=== PATIENT | female | born 1935 | race Caucasian/White ===

== ENCOUNTER 2018-08-06 01:52 | Inpatient (IN) | payer MEDICARE ==
[2018-08-06] MEDS ORDERED: Ondansetron PF 4 MG/2 ML Vial IVP PRN (02:34)
[2018-08-06 02:43] LABS: Bilirubin Small (Negative); Blood, Urine Negative (Negative); Clarity CLOUDY (Clear); Glucose, Urine (Dipstick) Negative (Negative); Leukocyte Small (Negative); Nitrite Positive (Negative); Protein, Urine (Dipstick) 30 mg/dL (Neg-Trace); Specific Gravity, Urine 1.027 (1.002-1.036)
[2018-08-06 02:46] LABS: Bacteria/HPF None Seen HPF (None Seen); Pathc Cast-AUWi Flag 12.78 (0-2.49)
[2018-08-06 02:59] LABS: Hyaline Casts/LPF 0-3 HYALINE CAST LPF (0-3 Hyaline); RBC/HPF 0-3 HPF (0-3); Renal Epithelial None Seen HPF (0-3); Squamous Epithelial 0-3 HPF (0-3); Transitional Epithelial NONE SEEN HPF (0-3)
[2018-08-06 03:00] LABS: Other Casts/LPF None Seen LPF (0-3 Hyaline)
[2018-08-06 03:18] LABS: Hemoglobin 10.9 g/dL (12.0-16.0); Mean Corpuscular HGB CONC 32.1 g/dL (32.0-36.0); Mean Corpuscular Hemoglobin 28.9 pg (27.0-31.0); Mean Corpuscular Volume 90.1 fL (78.0-98.0); Mean Platelet Volume 6.7 fL (7.4-10.4); Platelet Count 498 thou/uL (130-400); RBC Distribution Width 12.5 % (11.5-14.5); Red Blood Cell (RBC) Count 3.78 mill/uL (4.20-5.40); White Blood Cell (WBC) Count 29.4 thou/uL (4.8-10.8)
[2018-08-06 03:40] LABS: Anion Gap 16 mmol/L (10-20); BUN (Urea Nitrogen) 12 mg/dL (9.8-20.1); Calc. Creatinine Clearance 0 mL/min (70-130); Carbon Dioxide 26 mmol/L (23-31); Chloride 91 mmol/L (98-107); Estimated GFR-MDRD Greater than 90; Glucose 145 mg/dL (83-110); Potassium 3.1 mmol/L (3.5-5.1); Sodium 130 mmol/L (136-145)
[2018-08-06 03:52] LABS: Band 6 % (5-11); Lymphocytes 9 % (21-51); MDiff Complete? YES; Monocytes 7 % (0-10); Neutrophil 78 % (42-75)
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
[2018-08-06] MEDS: cefTRIAXone\\ROCEPHIN 1 GM in Sodium Chloride 0.9% 100 ML IVPB SCH (05:17)
[2018-08-06] MEDS: Azithromycin 500 MG in Sodium Chloride 0.9% 250 ML 250 ML IVPB SCH (05:38)
[2018-08-06] MEDS ORDERED: D5 NS w/ 40 mEq KCl 1,000 ML IV SCH (07:45)
[2018-08-06 09:12] LABS: Magnesium 1.5 mg/dL (1.6-2.6); Phosphorus 2.5 mg/dL (2.3-4.7)
[2018-08-06] MEDS ORDERED: Magnesium 2 GM/50 ML 2 GM in Premix Bag 1 BAG IVPB SCH (11:15)
[2018-08-06] MEDS ORDERED: Vancomycin HCl 1 GM in Premix Bag 1 BAG IVPB SCH (12:15)
[2018-08-06] MEDS: Bisacodyl 5 MG TAB PO SCH ×2 (13:19→22:49)
[2018-08-06] MEDS: Heparin 5,000 UNITS/ML VIAL SC SCH ×2 (13:19→22:49)
[2018-08-06 13:44] VITALS: BMI 16.2
[2018-08-06] MEDS ORDERED: Sodium Chloride 0.9% 1,000 ML IV SCH (13:48)
[2018-08-06] MEDS: D5 NS w/ 40 mEq KCl 1,000 ML IV SCH ×2 (14:00→20:53)
[2018-08-06] MEDS: Vancomycin HCl 750 MG in Sodium Chloride 0.9% 250 ML 250 ML IVPB SCH (15:20)
[2018-08-06] MEDS ORDERED: Prevnar 13-Val Conj/PF 0.5 ML SYRINGE IM ONE (16:00)
[2018-08-06] MEDS: Senokot S 8.6-50 MG TAB PO SCH (22:48)
[2018-08-07] MEDS: D5 NS w/ 40 mEq KCl 1,000 ML IV SCH (01:25)
[2018-08-07] MEDS: cefTRIAXone\\ROCEPHIN 1 GM in Sodium Chloride 0.9% 100 ML IVPB SCH (03:07)
[2018-08-07] MEDS: Azithromycin 500 MG in Sodium Chloride 0.9% 250 ML 250 ML IVPB SCH (04:55)
[2018-08-07 05:36] LABS: Band 2 % (5-11); Hemoglobin 8.2 g/dL (12.0-16.0); Lymphocytes 2 % (21-51); MDiff Complete? YES; Mean Corpuscular Hemoglobin 29.3 pg (27.0-31.0); Mean Corpuscular Volume 91.5 fL (78.0-98.0); Mean Platelet Volume 6.8 fL (7.4-10.4); Monocytes 5 % (0-10); Neutrophil 91 % (42-75); Platelet Count 411 thou/uL (130-400); RBC Distribution Width 12.5 % (11.5-14.5); Red Blood Cell (RBC) Count 2.79 mill/uL (4.20-5.40); White Blood Cell (WBC) Count 20.2 thou/uL (4.8-10.8)
[2018-08-07 05:41] LABS: ALT (SGPT) 29 U/L (8-55); AST (SGOT) 37 U/L (5-34); Albumin 2.1 g/dL (3.4-4.8); Alkaline Phosphatase 215 U/L (40-150); Anion Gap 11 mmol/L (10-20); BUN (Urea Nitrogen) 8 mg/dL (9.8-20.1); Bilirubin, Total 0.5 mg/dL (0.2-1.2); Calc. Creatinine Clearance 56 mL/min (70-130); Calcium 7.1 mg/dL (7.8-10.44); Carbon Dioxide 24 mmol/L (23-31); Chloride 100 mmol/L (98-107); Estimated GFR-MDRD Greater than 90; Globulin 3.1 g/dL (2.4-3.5); Glucose 170 mg/dL (83-110); Magnesium 1.7 mg/dL (1.6-2.6); Phosphorus 1.8 mg/dL (2.3-4.7); Protein, Total 5.2 g/dL (6.0-8.3); Sodium 131 mmol/L (136-145)
[2018-08-07] MEDS ORDERED: Potassium Phosphate 15 MMOL in Sodium Chloride 0.9% 250 ML 250 ML IVPB SCH (07:30)
[2018-08-07] MEDS: Senokot S 8.6-50 MG TAB PO SCH ×2 (08:21→21:48)
[2018-08-07] MEDS: Saccharomyces boulardii 250 MG CAP PO SCH (08:21)
[2018-08-07] MEDS: Bisacodyl 5 MG TAB PO SCH ×2 (08:21→21:48)
[2018-08-07] MEDS: Dextrose 5 % And 0.9 % NaCl 1,000 ML IV SCH (08:22)
[2018-08-07] MEDS: Heparin 5,000 UNITS/ML VIAL SC SCH ×2 (08:22→21:48)
[2018-08-07] MEDS: Acetaminophen 325 MG TAB PO PRN (09:30)
--- NOTE | 2018-08-07 16:49 | HP ---
HISTORY OF PRESENT ILLNESS: Amalia Skelton is an 83-year-old female, lives at home with a caregiver. She has been admitted because of extensive decubitus. She is a DNR. Hospital personnel and nursing have not discovered [id number]. I have been asked to see her about extensive decubitus. She has a right leg deformity with flexion contracture of her right knee deformity from long-term non-ambulation with her knee flexed up into her hip and her ankle turned outward. She has decubitus over her ankle. She has a right ischial decubitus to the femur bone with involved bone irregular bone on palpation. She has a large sacral decubitus extending to the sacrum with irregular bone obviously both involving osteomyelitis. She has extensive necrosis of her tissues and large wounds with undermining. The patient continues to state no, no, no as I examined her. She is not competent for medical decisions. She does not know where she is. She does not know where she lives. Past history was obtained from the chart as the patient is not a reliable historian. White count is 20, hemoglobin is 8.2. Renal function is normal. Glucose 170 to 140. Current history and physical does not discern any past history. PAST SURGICAL HISTORY: Review of her past records from 2014 reveal past medical history of dementia. PAST SURGICAL HISTORY: Suggests a partial colectomy and ovarian cyst removal. Past admission, she was only on MiraLAX. SOCIAL HISTORY: In 2014, the patient had an [id number] stating that she was her power of security compliance specialist. Her name is Rajesh. No history of tobacco, drug use, or alcohol use. PHYSICAL EXAMINATION: VITAL SIGNS: Height 5 feet 3 inches, 91 pounds, 16 BMI, 110 heart rate, 20, 126/72. LUNGS: Clear to auscultation. CARDIAC: Regular rate and rhythm without murmur or gallop. ABDOMEN: Soft and nontender. MUSCULOSKELETAL: Right leg deformity as described. Decubitus over elbows, ankles, right ischium, and sacrum. The ischial sacral wounds are large with a large amount undermining and necrotic tissue. I exposed proximal femur and sacrum respectively with irregular bone palpated, consistent with osteomyelitis. EXTREMITIES: Deformity. LABORATORY DATA: Laboratories as noted. ASSESSMENT AND PLAN: Do not resuscitate, bedridden, and severe dementia. The patient has extensive decubitus. Surgical debridement would require going to the operating room and debridement of the underlying soft tissues, femur, and sacrum. She would require extensive soft tissue debridement. Currently, I think the patient should be on hospice care and the patient although confused, says no to all treatment. I would not recommend debridement and would recommend hospice care and palliative measures. At this point, I will see her as needed. Please call if necessary. Job ID: [id number]
[2018-08-07] MEDS: Vancomycin HCl 750 MG in Sodium Chloride 0.9% 250 ML 250 ML IVPB SCH (17:33)
--- NOTE | 2018-08-07 18:50 | PDOC.PN ---
- Subjective Encounter Start Date: 08/07/18 Encounter Start Time: 10:00 Patient seen and examined for Sepsis. No new complaints. No overnight events - Objective Resuscitation Status - Order Detail: 08/06/18 13:59 Resuscitation Status Routine Resuscitation Status: DNAR: NO Resuscitation Discussed with: Palliative care confirmed with family MAR Reviewed: Yes Vital Signs & Weight: Vital Signs (12 hours) Temp Pulse Resp BP Pulse Ox 08/07/18 16:00 98.2 F 104 H 22 H 122/67 98 08/07/18 14:56 97 20 97 08/07/18 12:00 99.1 F 109 H 22 H 103/49 L 98 08/07/18 10:21 110 H 20 99 08/07/18 07:01 87 16 97 Weight Weight 91 lb 12.8 oz Result Diagrams: 08/07/18 04:52 08/07/18 04:52 Radiology Reviewed by me: Yes (CXR - RML pneumonia) Phys Exam - Physical Examination Constitutional: NAD Neck: no JVD Respiratory: no wheezing Rt sided rhonchi/rales, No accessory muscle use Cardiovascular: RRR, no rub no heaves/pulsations Gastrointestinal: soft, non-tender, no distention, positive bowel sounds Musculoskeletal: no edema, pulses present Neurological: non-focal, normal sensation, moves all 4 limbs Psychiatric: normal affect, A&O x 3 Skin: no rash Deviation from normal: decub ulcer + Dx/Plan - Plan DVT proph w/heparin, DVT proph w/SCDs 1. Sepsis due to Pneumonia ? Aspiration/infected decub ulcers 2. Stage 3 left great toe ulcer, Left ischial unstageable (present on admission ) 3. Electrolyte abnormality (Hypokalemia/Hypomagnesemia/Hypophosphatemia) 4. Severe Protein Calorie malnutrition 5. HTN 6. Advanced Dementia 7. Swallow dysfunction PLAN: Cont Vancomycin/Ceftriaxone Monitor Vancomycin level AM labs Replace electrolytes SNF Eval Cont wound care Review of Systems - Review of Systems Other: Cannot obtain due to current mentation. - Medications/Allergies Allergies/Adverse Reactions: Allergies Allergy/AdvReac Type Severity Reaction Status Date / Time No Known Drug Allergies Allergy Verified 06/01/14 22:47 Medications: Current Medications Acetaminophen (Tylenol) 650 mg PO Q4H PRN PRN Reason: Headache/Fever/Mild Pain (1-3) Last Admin: 08/07/18 09:30 Dose: 650 mg Albuterol/Ipratropium (Duoneb) 3 ml NEB [id number] [facility] Last Admin: 08/07/18 14:56 Dose: 3 ml Bisacodyl (Dulcolax) 5 mg PO BID [facility] Last Admin: 08/07/18 08:21 Dose: 5 mg Heparin Sodium (Porcine) (Heparin) 5,000 units SC BID [facility] Last Admin: 08/07/18 08:22 Dose: 5,000 units Azithromycin 500 mg/ Sodium (Chloride) 250 mls @ 250 mls/hr IVPB Q24HR [facility] Last Admin: 08/07/18 04:55 Dose: 250 mls Ceftriaxone Sodium 1 gm/ (Sodium Chloride) 100 mls @ 200 mls/hr IVPB Q24HR [facility] Last Admin: 08/07/18 03:07 Dose: 100 mls Vancomycin HCl 750 mg/ Sodium (Chloride) 250 mls @ 250 mls/hr IVPB 1400 [facility] Last Admin: 08/07/18 17:33 Dose: 250 mls Dextrose/Sodium Chloride (D5 0.9% Ns) 1,000 mls @ 50 mls/hr IV .Q20H [facility] Last Admin: 08/07/18 08:22 Dose: 1,000 mls Miscellaneous Medication (Pharmacy To Dose) 0 each IVPB PRN PRN PRN Reason: Pharmacy to Dose Ondansetron HCl (Zofran) 4 mg IVP Q6H PRN PRN Reason: Nausea/Vomiting Saccharomyces Boulardii (Florastor) 250 mg PO DAILY [facility] Last Admin: 08/07/18 08:21 Dose: 250 mg Senna/Docusate Sodium (Senokot S) 2 tab PO BID [facility] Last Admin: 08/07/18 08:21 Dose: 2 tab Sodium Chloride (Flush - Normal Saline) 10 ml IVF Q12HR [facility] Last Admin: 08/07/18 08:22 Dose: 10 ml Sodium Chloride (Flush - Normal Saline) 10 ml IVF PRN PRN PRN Reason: Saline Flush
[2018-08-08] MEDS: cefTRIAXone\\ROCEPHIN 1 GM in Sodium Chloride 0.9% 100 ML IVPB SCH (03:07)
[2018-08-08] MEDS: Dextrose 5 % And 0.9 % NaCl 1,000 ML IV SCH (03:09)
[2018-08-08] MEDS: Senokot S 8.6-50 MG TAB PO SCH ×2 (09:59→22:23)
[2018-08-08] MEDS: Saccharomyces boulardii 250 MG CAP PO SCH (09:59)
[2018-08-08] MEDS: Heparin 5,000 UNITS/ML VIAL SC SCH ×2 (09:59→22:24)
[2018-08-08] MEDS: Bisacodyl 5 MG TAB PO SCH ×2 (09:59→22:23)
[2018-08-08 13:46] LABS: Hemoglobin 8.9 g/dL (12.0-16.0); Mean Corpuscular Hemoglobin 29.2 pg (27.0-31.0); Mean Corpuscular Volume 91.5 fL (78.0-98.0); Mean Platelet Volume 6.7 fL (7.4-10.4); Platelet Count 490 thou/uL (130-400); RBC Distribution Width 12.9 % (11.5-14.5); Red Blood Cell (RBC) Count 3.02 mill/uL (4.20-5.40); White Blood Cell (WBC) Count 19.4 thou/uL (4.8-10.8)
[2018-08-08 13:53] LABS: Vancomycin, Trough 4.9 ug/mL
[2018-08-08 14:09] LABS: Band 2 % (5-11); Eosinophils 2 % (0-10); Lymphocytes 14 % (21-51); MDiff Complete? YES; Monocytes 2 % (0-10); Neutrophil 80 % (42-75); Platelet Morphology Comment Appears Increased
[2018-08-08 14:12] LABS: ALT (SGPT) 37 U/L (8-55); AST (SGOT) 40 U/L (5-34); Albumin 2.2 g/dL (3.4-4.8); Alkaline Phosphatase 256 U/L (40-150); Anion Gap 12 mmol/L (10-20); BUN (Urea Nitrogen) 5 mg/dL (9.8-20.1); Bilirubin, Total 0.8 mg/dL (0.2-1.2); Calc. Creatinine Clearance 56 mL/min (70-130); Calcium 7.5 mg/dL (7.8-10.44); Carbon Dioxide 23 mmol/L (23-31); Chloride 101 mmol/L (98-107); Estimated GFR-MDRD Greater than 90; Globulin 3.5 g/dL (2.4-3.5); Glucose 127 mg/dL (83-110); Magnesium 1.4 mg/dL (1.6-2.6); Phosphorus 2.5 mg/dL (2.3-4.7); Potassium 3.8 mmol/L (3.5-5.1); Protein, Total 5.7 g/dL (6.0-8.3); Sodium 132 mmol/L (136-145)
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
[2018-08-08] MEDS: Vancomycin HCl 750 MG in Sodium Chloride 0.9% 250 ML 250 ML IVPB SCH (14:44)
[2018-08-08] MEDS ORDERED: Magnesium 2 GM/50 ML 2 GM in Premix Bag 1 BAG IVPB SCH (14:45)
--- NOTE | 2018-08-08 22:38 | PDOC.PN ---
- Subjective Encounter Start Date: 08/08/18 Encounter Start Time: 14:00 Patient seen and examined for Sepsis. No new complaints. No overnight events - Objective Resuscitation Status - Order Detail: 08/06/18 13:59 Resuscitation Status Routine Resuscitation Status: DNAR: NO Resuscitation Discussed with: Palliative care confirmed with family MAR Reviewed: Yes Vital Signs & Weight: Vital Signs (12 hours) Temp Pulse Resp BP Pulse Ox 08/08/18 22:28 108 H 16 98 08/08/18 20:50 98.9 F 101 H 16 107/65 97 08/08/18 18:33 98 18 98 08/08/18 14:51 86 16 100 08/08/18 11:00 93 16 99 Weight Weight 91 lb 12.8 oz I&O: 08/07/18 08/08/18 08/09/18 06:59 06:59 06:59 Intake Total 692 Balance 692 Result Diagrams: 08/08/18 13:27 08/08/18 13:27 Phys Exam - Physical Examination Constitutional: NAD Respiratory: no wheezing, no rhonchi Cardiovascular: RRR, no rub Gastrointestinal: soft, positive bowel sounds Dx/Plan - Plan DVT proph w/heparin, DVT proph w/SCDs 1. Sepsis due to Pneumonia ? Aspiration/infected decub ulcers 2. Stage 3 left great toe ulcer, Left ischial unstageable (present on admission ) 3. Electrolyte abnormality (Hypokalemia/Hypomagnesemia/Hypophosphatemia) 4. Severe Protein Calorie malnutrition 5. HTN 6. Advanced Dementia 7. Swallow dysfunction 8. 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) PLAN: Replace Magnessium Cont IV Vancomycin/Ceftriaxone Monitor Vancomycin level AM labs Cont wound care SNF Eval pending Laboratory Tests 08/06/18 08/06/18 08/07/18 03:04 03:04 04:52 Potassium 3.1 L Phosphorus 2.5 1.8 L Magnesium 1.5 L 08/08/18 13:27 Potassium Phosphorus Magnesium 1.4 L Review of Systems - Review of Systems Respiratory: negative: Cough, Dry, Shortness of Breath, Hemoptysis, SOB with Excertion, Pleuritic Pain, Sputum, Wheezing Cardiovascular: negative: chest pain, palpitations, orthopnea, paroxysmal nocturnal dyspnea, edema, light headedness, other - Medications/Allergies Allergies/Adverse Reactions: Allergies Allergy/AdvReac Type Severity Reaction Status Date / Time No Known Drug Allergies Allergy Verified 06/01/14 22:47 Medications: Current Medications Acetaminophen (Tylenol) 650 mg PO Q4H PRN PRN Reason: Headache/Fever/Mild Pain (1-3) Last Admin: 08/07/18 09:30 Dose: 650 mg Albuterol/Ipratropium (Duoneb) 3 ml NEB [id number] [facility] Last Admin: 08/08/18 22:28 Dose: 3 ml Heparin Sodium (Porcine) (Heparin) 5,000 units SC BID [facility] Last Admin: 08/08/18 22:24 Dose: 5,000 units Ceftriaxone Sodium 1 gm/ (Sodium Chloride) 100 mls @ 200 mls/hr IVPB Q24HR [facility] Last Admin: 08/08/18 03:07 Dose: 100 mls Vancomycin HCl 750 mg/ Sodium (Chloride) 250 mls @ 250 mls/hr IVPB 0200,1400 [facility] Miscellaneous Medication (Pharmacy To Dose) 0 each IVPB PRN PRN PRN Reason: Pharmacy to Dose Ondansetron HCl (Zofran) 4 mg IVP Q6H PRN PRN Reason: Nausea/Vomiting Saccharomyces Boulardii (Florastor) 250 mg PO DAILY [facility] Last Admin: 08/08/18 09:59 Dose: 250 mg Senna/Docusate Sodium (Senokot S) 2 tab PO BID [facility] Last Admin: 08/08/18 22:23 Dose: 2 tab Sodium Chloride (Flush - Normal Saline) 10 ml IVF Q12HR [facility] Last Admin: 08/08/18 22:23 Dose: 10 ml Sodium Chloride (Flush - Normal Saline) 10 ml IVF PRN PRN PRN Reason: Saline Flush
[2018-08-09] MEDS: Vancomycin HCl 750 MG in Sodium Chloride 0.9% 250 ML 250 ML IVPB SCH ×2 (02:28→15:38)
[2018-08-09] MEDS: cefTRIAXone\\ROCEPHIN 1 GM in Sodium Chloride 0.9% 100 ML IVPB SCH (04:02)
[2018-08-09 06:21] LABS: #Eosinphils 0.2 thou/uL (0.0-0.7); #Lymphocytes 1.4 thou/uL (1.20-3.40); #Monocytes 1.4 thou/uL (0.11-0.59); #Neutrophils 13.6 thou/uL (1.40-6.50); %Basophils 0.2 % (0.0-1.0); %Eosinophils 0.9 % (0.0-10.0); %Lymphocytes 8.6 % (21.0-51.0); %Monocytes 8.2 % (0.0-10.0); %Neutrophils 82.1 % (42.0-75.0); Hemoglobin 8.4 g/dL (12.0-16.0); Mean Corpuscular HGB CONC 31.8 g/dL (32.0-36.0); Mean Corpuscular Volume 91.1 fL (78.0-98.0); Mean Platelet Volume 6.5 fL (7.4-10.4); Platelet Count 502 thou/uL (130-400); RBC Distribution Width 12.7 % (11.5-14.5); Red Blood Cell (RBC) Count 2.91 mill/uL (4.20-5.40); White Blood Cell (WBC) Count 16.6 thou/uL (4.8-10.8)
[2018-08-09 06:42] LABS: Albumin 2.1 g/dL (3.4-4.8); Anion Gap 12 mmol/L (10-20); BUN (Urea Nitrogen) 5 mg/dL (9.8-20.1); BUN/Creatinine Ratio 11.36; Calc. Creatinine Clearance 61 mL/min (70-130); Calcium 7.2 mg/dL (7.8-10.44); Carbon Dioxide 22 mmol/L (23-31); Chloride 100 mmol/L (98-107); Estimated GFR-MDRD Greater than 90; Glucose 100 mg/dL (83-110); Magnesium 1.8 mg/dL (1.6-2.6); Phosphorus 2.7 mg/dL (2.3-4.7); Potassium 3.8 mmol/L (3.5-5.1); Sodium 130 mmol/L (136-145)
[2018-08-09] MEDS: Heparin 5,000 UNITS/ML VIAL SC SCH ×2 (10:16→21:30)
[2018-08-09] MEDS: Saccharomyces boulardii 250 MG CAP PO SCH (10:16)
[2018-08-09] MEDS: Senokot S 8.6-50 MG TAB PO SCH ×2 (10:20→21:30)
--- NOTE | 2018-08-09 16:36 | EKG ---
Test Reason : Blood Pressure : / mmHG Vent. Rate : 097 BPM Atrial Rate : 097 BPM P-R Int : 134 ms QRS Dur : 070 ms QT Int : 370 ms P-R-T Axes : 069 -07 016 degrees QTc Int : 469 ms Sinus rhythm with marked sinus arrhythmia Cannot rule out Inferior infarct , age undetermined Abnormal ECG When compared with ECG of 03-DEC-2014 17:07, No significant change was found Confirmed by DR. Sharonda WILCOX ([id number]) on 08/09/2018 4:36:06 PM Referred By: KAREN Confirmed By:DR. Sharonda WILCOX
[2018-08-09] MEDS: Acetaminophen 325 MG TAB PO PRN (21:30)
--- NOTE | 2018-08-09 23:13 | PDOC.PN ---
- Subjective Encounter Start Date: 08/09/18 Encounter Start Time: 11:30 Patient seen and examined for Sepsis. No new complaints. No overnight events - Objective Resuscitation Status - Order Detail: 08/06/18 13:59 Resuscitation Status Routine Resuscitation Status: DNAR: NO Resuscitation Discussed with: Palliative care confirmed with family MAR Reviewed: Yes Vital Signs & Weight: Vital Signs (12 hours) Temp Pulse Resp BP Pulse Ox 08/09/18 20:14 98.7 F 111 H 16 127/85 96 08/09/18 19:06 93 20 94 L 08/09/18 14:36 100 16 95 Weight Weight 91 lb 12.8 oz I&O: 08/08/18 08/09/18 08/10/18 06:59 06:59 06:59 Intake Total 692 150 Balance 692 150 Result Diagrams: 08/09/18 05:46 08/09/18 05:46 Phys Exam - Physical Examination Constitutional: NAD Respiratory: no wheezing, no rhonchi Cardiovascular: RRR, no rub Gastrointestinal: soft, non-tender, positive bowel sounds Musculoskeletal: no edema Dx/Plan - Plan DVT proph w/heparin, DVT proph w/SCDs 1. Sepsis due to Pneumonia ? Aspiration/infected decub ulcers 2. Stage 3 left great toe ulcer, Left ischial unstageable (present on admission ) 3. Electrolyte abnormality (Hypokalemia/Hypomagnesemia/Hypophosphatemia) 4. Severe Protein Calorie malnutrition 5. HTN 6. Advanced Dementia 7. 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 Swallow dysfunction PLAN: Replace Magnessium Cont IV Vancomycin/Ceftriaxone Monitor Vancomycin level AM labs Cont wound care SNF Eval Review of Systems - Review of Systems Respiratory: negative: Cough, Dry, Shortness of Breath, Hemoptysis, SOB with Excertion, Pleuritic Pain, Sputum, Wheezing Cardiovascular: negative: chest pain, palpitations, orthopnea, paroxysmal nocturnal dyspnea, edema, light headedness, other - Medications/Allergies Allergies/Adverse Reactions: Allergies Allergy/AdvReac Type Severity Reaction Status Date / Time No Known Drug Allergies Allergy Verified 06/01/14 22:47 Medications: Current Medications Acetaminophen (Tylenol) 650 mg PO Q4H PRN PRN Reason: Headache/Fever/Mild Pain (1-3) Last Admin: 08/09/18 21:30 Dose: 650 mg Albuterol/Ipratropium (Duoneb) 3 ml NEB [id number] [facility] Last Admin: 08/09/18 22:43 Dose: Not Given Heparin Sodium (Porcine) (Heparin) 5,000 units SC BID [facility] Last Admin: 08/09/18 21:30 Dose: 5,000 units Ceftriaxone Sodium 1 gm/ (Sodium Chloride) 100 mls @ 200 mls/hr IVPB Q24HR [facility] Last Admin: 08/09/18 04:02 Dose: 100 mls Vancomycin HCl 750 mg/ Sodium (Chloride) 250 mls @ 250 mls/hr IVPB 0200,1400 [facility] Last Admin: 08/09/18 15:38 Dose: 250 mls Miscellaneous Medication (Pharmacy To Dose) 0 each IVPB PRN PRN PRN Reason: Pharmacy to Dose Ondansetron HCl (Zofran) 4 mg IVP Q6H PRN PRN Reason: Nausea/Vomiting Saccharomyces Boulardii (Florastor) 250 mg PO DAILY [facility] Last Admin: 08/09/18 10:16 Dose: 250 mg Senna/Docusate Sodium (Senokot S) 2 tab PO BID [facility] Last Admin: 08/09/18 21:30 Dose: 2 tab Sodium Chloride (Flush - Normal Saline) 10 ml IVF Q12HR [facility] Last Admin: 08/09/18 21:30 Dose: Not Given Sodium Chloride (Flush - Normal Saline) 10 ml IVF PRN PRN PRN Reason: Saline Flush Last Admin: 08/09/18 02:34 Dose: 10 ml
[2018-08-10 01:16] LABS: Vancomycin, Trough 16.7 ug/mL
[2018-08-10] MEDS: Vancomycin HCl 750 MG in Sodium Chloride 0.9% 250 ML 250 ML IVPB SCH ×2 (02:06→13:08)
[2018-08-10] MEDS: cefTRIAXone\\ROCEPHIN 1 GM in Sodium Chloride 0.9% 100 ML IVPB SCH (03:49)
[2018-08-10] MEDS: Senokot S 8.6-50 MG TAB PO SCH ×2 (08:13→20:39)
[2018-08-10] MEDS: Heparin 5,000 UNITS/ML VIAL SC SCH ×2 (08:13→20:39)
[2018-08-10] MEDS: Saccharomyces boulardii 250 MG CAP PO SCH (08:13)
[2018-08-10 12:16] LABS: #Eosinphils 0.1 thou/uL (0.0-0.7); #Lymphocytes 1.2 thou/uL (1.20-3.40); #Neutrophils 11.7 thou/uL (1.40-6.50); %Basophils 0.2 % (0.0-1.0); %Eosinophils 0.5 % (0.0-10.0); %Lymphocytes 8.3 % (21.0-51.0); %Monocytes 7.3 % (0.0-10.0); %Neutrophils 83.8 % (42.0-75.0); Hemoglobin 8.9 g/dL (12.0-16.0); Mean Corpuscular HGB CONC 32.5 g/dL (32.0-36.0); Mean Corpuscular Hemoglobin 29.5 pg (27.0-31.0); Mean Corpuscular Volume 90.8 fL (78.0-98.0); Mean Platelet Volume 6.1 fL (7.4-10.4); Platelet Count 572 thou/uL (130-400); Red Blood Cell (RBC) Count 3.03 mill/uL (4.20-5.40)
[2018-08-10 12:29] LABS: Albumin 2.2 g/dL (3.4-4.8); Anion Gap 12 mmol/L (10-20); BUN (Urea Nitrogen) 7 mg/dL (9.8-20.1); BUN/Creatinine Ratio 15.91; Calc. Creatinine Clearance 61 mL/min (70-130); Calcium 7.4 mg/dL (7.8-10.44); Carbon Dioxide 21 mmol/L (23-31); Chloride 104 mmol/L (98-107); Estimated GFR-MDRD Greater than 90; Glucose 97 mg/dL (83-110); Magnesium 1.6 mg/dL (1.6-2.6); Phosphorus 2.7 mg/dL (2.3-4.7); Potassium 3.6 mmol/L (3.5-5.1); Sodium 133 mmol/L (136-145)
[2018-08-10] MEDS: Acetaminophen 325 MG TAB PO PRN ×2 (13:54→20:39)
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
--- NOTE | 2018-08-10 20:38 | PDOC.PN ---
- Subjective Encounter Start Date: 08/10/18 Encounter Start Time: 12:00 Patient seen and examined for Sepsis. Feeling better. No new complaints. No overnight events - Objective Resuscitation Status - Order Detail: 08/06/18 13:59 Resuscitation Status Routine Resuscitation Status: DNAR: NO Resuscitation Discussed with: Palliative care confirmed with family MAR Reviewed: Yes Vital Signs & Weight: Vital Signs (12 hours) Temp Pulse Resp BP Pulse Ox 08/10/18 20:27 98.4 F 89 16 162/89 H 100 08/10/18 18:53 88 16 97 08/10/18 11:53 89 16 100 Weight Weight 91 lb 12.8 oz I&O: 08/09/18 08/10/18 08/11/18 06:59 06:59 06:59 Intake Total 150 521 510 Balance 150 521 510 Result Diagrams: 08/10/18 12:08 08/10/18 12:08 Phys Exam - Physical Examination Constitutional: NAD Respiratory: no wheezing, no rhonchi Cardiovascular: RRR, no rub Gastrointestinal: soft, non-tender, positive bowel sounds Musculoskeletal: no edema Dx/Plan - Plan DVT proph w/SCDs 1. Sepsis due to Pneumonia ? Aspiration/infected decub ulcers 2. Stage 3 left great toe ulcer, Left ischial unstageable (present on admission ) 3. Electrolyte abnormality (Hypokalemia/Hypomagnesemia/Hypophosphatemia) 4. Severe Protein Calorie malnutrition 5. HTN 6. Advanced Dementia 7. 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 Swallow dysfunction PLAN: Cont IV Vancomycin/Ceftriaxone Cont wound care SNF Eval pending Await family input on plan of care Review of Systems - Review of Systems Respiratory: negative: Cough, Dry, Shortness of Breath, Hemoptysis, SOB with Excertion, Pleuritic Pain, Sputum, Wheezing Cardiovascular: negative: chest pain, palpitations, orthopnea, paroxysmal nocturnal dyspnea, edema, light headedness, other - Medications/Allergies Allergies/Adverse Reactions: Allergies Allergy/AdvReac Type Severity Reaction Status Date / Time No Known Drug Allergies Allergy Verified 06/01/14 22:47 Medications: Current Medications Acetaminophen (Tylenol) 650 mg PO Q4H PRN PRN Reason: Headache/Fever/Mild Pain (1-3) Last Admin: 08/10/18 13:54 Dose: 650 mg Albuterol/Ipratropium (Duoneb) 3 ml NEB [id number] [facility] Last Admin: 08/10/18 18:53 Dose: 3 ml Heparin Sodium (Porcine) (Heparin) 5,000 units SC BID [facility] Last Admin: 08/10/18 08:13 Dose: 5,000 units Ceftriaxone Sodium 1 gm/ (Sodium Chloride) 100 mls @ 200 mls/hr IVPB Q24HR [facility] Last Admin: 08/10/18 03:49 Dose: 100 mls Vancomycin HCl 750 mg/ Sodium (Chloride) 250 mls @ 250 mls/hr IVPB 0200,1400 [facility] Last Admin: 08/10/18 13:08 Dose: 250 mls Miscellaneous Medication (Pharmacy To Dose) 0 each IVPB PRN PRN PRN Reason: Pharmacy to Dose Ondansetron HCl (Zofran) 4 mg IVP Q6H PRN PRN Reason: Nausea/Vomiting Saccharomyces Boulardii (Florastor) 250 mg PO DAILY [facility] Last Admin: 08/10/18 08:13 Dose: 250 mg Senna/Docusate Sodium (Senokot S) 2 tab PO BID [facility] Last Admin: 08/10/18 08:13 Dose: 2 tab Sodium Chloride (Flush - Normal Saline) 10 ml IVF Q12HR [facility] Last Admin: 08/10/18 08:13 Dose: 10 ml Sodium Chloride (Flush - Normal Saline) 10 ml IVF PRN PRN PRN Reason: Saline Flush Last Admin: 08/09/18 02:34 Dose: 10 ml
[2018-08-11] MEDS: Vancomycin HCl 750 MG in Sodium Chloride 0.9% 250 ML 250 ML IVPB SCH ×2 (01:11→14:04)
[2018-08-11] MEDS: cefTRIAXone\\ROCEPHIN 1 GM in Sodium Chloride 0.9% 100 ML IVPB SCH (03:15)
[2018-08-11] MEDS: Heparin 5,000 UNITS/ML VIAL SC SCH ×2 (07:54→21:09)
[2018-08-11] MEDS: Senokot S 8.6-50 MG TAB PO SCH ×2 (07:54→21:09)
[2018-08-11] MEDS: Saccharomyces boulardii 250 MG CAP PO SCH (07:54)
--- NOTE | 2018-08-11 22:30 | PDOC.PN ---
- Subjective Encounter Start Date: 08/11/18 Encounter Start Time: 10:30 Patient seen and examined for Sepsis/decub ulcer. No new complaints. No overnight events - Objective Resuscitation Status - Order Detail: 08/06/18 13:59 Resuscitation Status Routine Resuscitation Status: DNAR: NO Resuscitation Discussed with: Palliative care confirmed with family MAR Reviewed: Yes Vital Signs & Weight: Vital Signs (12 hours) Temp Pulse Resp Pulse Ox 08/11/18 20:00 98.6 F 102 H 20 99 08/11/18 18:37 94 18 99 08/11/18 15:57 92 16 96 Weight Weight 91 lb 12.8 oz I&O: 08/10/18 08/11/18 08/12/18 06:59 06:59 06:59 Intake Total 521 1138 491 Balance 521 1138 491 Result Diagrams: 08/10/18 12:08 08/10/18 12:08 Phys Exam - Physical Examination Constitutional: NAD Respiratory: no wheezing, no rhonchi Cardiovascular: RRR, no rub Gastrointestinal: soft, non-tender, positive bowel sounds Musculoskeletal: no edema Neurological: moves all 4 limbs Dx/Plan - Plan DVT proph w/SCDs 1. Sepsis due to Pneumonia ? Aspiration/infected decub ulcers- on IV Vancomycin/ Ceftriaxone 2. Stage 3 left great toe ulcer, Left ischial unstageable (present on admission ) 3. Electrolyte abnormality (Hypokalemia/Hypomagnesemia/Hypophosphatemia) 4. Severe Protein calorie malnutrition 5. HTN 6. Advanced Dementia 7. 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 Swallow dysfunction PLAN: Cont ATbx Cont wound care Change Atbx to PO at dc SNF Eval pending Review of Systems - Review of Systems Respiratory: negative: Cough, Dry, Shortness of Breath, Hemoptysis, SOB with Excertion, Pleuritic Pain, Sputum, Wheezing Cardiovascular: negative: chest pain, palpitations, orthopnea, paroxysmal nocturnal dyspnea, edema, light headedness, other - Medications/Allergies Allergies/Adverse Reactions: Allergies Allergy/AdvReac Type Severity Reaction Status Date / Time No Known Drug Allergies Allergy Verified 06/01/14 22:47 Medications: Current Medications Acetaminophen (Tylenol) 650 mg PO Q4H PRN PRN Reason: Headache/Fever/Mild Pain (1-3) Last Admin: 08/10/18 20:39 Dose: 650 mg Albuterol/Ipratropium (Duoneb) 3 ml NEB [id number] [facility] Last Admin: 08/11/18 18:37 Dose: 3 ml Heparin Sodium (Porcine) (Heparin) 5,000 units SC BID [facility] Last Admin: 08/11/18 21:09 Dose: 5,000 units Ceftriaxone Sodium 1 gm/ (Sodium Chloride) 100 mls @ 200 mls/hr IVPB Q24HR [facility] Last Admin: 08/11/18 03:15 Dose: 100 mls Vancomycin HCl 750 mg/ Sodium (Chloride) 250 mls @ 250 mls/hr IVPB 0200,1400 [facility] Last Admin: 08/11/18 14:04 Dose: 250 mls Miscellaneous Medication (Pharmacy To Dose) 0 each IVPB PRN PRN PRN Reason: Pharmacy to Dose Ondansetron HCl (Zofran) 4 mg IVP Q6H PRN PRN Reason: Nausea/Vomiting Saccharomyces Boulardii (Florastor) 250 mg PO DAILY [facility] Last Admin: 08/11/18 07:54 Dose: 250 mg Senna/Docusate Sodium (Senokot S) 2 tab PO BID [facility] Last Admin: 08/11/18 21:09 Dose: 2 tab Sodium Chloride (Flush - Normal Saline) 10 ml IVF Q12HR [facility] Last Admin: 08/11/18 21:10 Dose: 10 ml Sodium Chloride (Flush - Normal Saline) 10 ml IVF PRN PRN PRN Reason: Saline Flush Last Admin: 08/09/18 02:34 Dose: 10 ml
[2018-08-12] MEDS: Vancomycin HCl 750 MG in Sodium Chloride 0.9% 250 ML 250 ML IVPB SCH ×2 (03:00→13:12)
[2018-08-12] MEDS: cefTRIAXone\\ROCEPHIN 1 GM in Sodium Chloride 0.9% 100 ML IVPB SCH (04:30)
[2018-08-12] MEDS: Senokot S 8.6-50 MG TAB PO SCH (08:09)
[2018-08-12] MEDS: Saccharomyces boulardii 250 MG CAP PO SCH (08:09)
[2018-08-12] MEDS: Heparin 5,000 UNITS/ML VIAL SC SCH (08:09)
[2018-08-12 16:39] VITALS: BP 119/69; TEMP 98.2
--- NOTE | 2018-08-12 19:03 | DIS ---
DATE OF ADMISSION: 08/06/2018 DATE OF DISCHARGE: 08/12/2018 DISCHARGE DISPOSITION: To [facility]. CODE STATUS: Do not resuscitate. The patient was seen and examined on the day of discharge. Denies any new complaints. INPATIENT CONSULTANTS: 1. Infectious Disease, Dr. Stovall. 2. General Surgery, Dr. Wiley. DISCHARGE MEDICATIONS: Flagyl 500 mg three times daily for 4 weeks, Augmentin 400 mg b.i.d. for 4 weeks, Tylenol as needed, Florastor 250 mg daily, Senokot-S one tablet b.i.d. BRIEF HOSPITAL COURSE: The patient is an 83-year-old female with dementia, presented to the emergency room on 05 August 2018 with multiple decubitus ulcer. The patient currently is followed by DrBelinda . She also has multiple contractures. Please refer to the history and physical for further details. The patient was admitted to the hospital with a diagnosis of sepsis secondary to infected decubitus ulcer along with aspiration. She was placed on IV vancomycin and ceftriaxone. She received wound care almost on a daily basis. She also had several electrolyte abnormalities, which were replaced. Blood cultures remained negative. The patient was seen by General Surgery, Dr. Wiley. Dr. Wiley did not recommend debridement due to multiple comorbidities. He recommended hospice care and palliative measures. The patient was also seen by Infectious Disease, Dr. Stovall. Per family's request, the patient will be [facility]. They declined hospice at this time. Total time coordinating the discharge of this patient was 35 minutes. SIGNIFICANT LABORATORY DATA: WBC on admission 29.3 and at discharge 14. Hemoglobin 8.9. Sodium 130. Magnesium 1.5. Phosphorus 1.8. Urinalysis was negative. Total bilirubin on admission 1.7 and at discharge 0.8. Albumin 2.1. FINAL DIAGNOSES: 1. Sepsis due to aspiration pneumonia with infected decubitus ulcer, present on admission. 2. Several decubitus ulcer including stage III left great toe ulcer and left ischial unstageable ulcer. 3. Multiple electrolyte abnormalities including hypokalemia, hypomagnesemia, and hypophosphatemia. 4. Severe protein-calorie malnutrition. 5. Hypertension. 6. Advanced dementia. 7. Swallow dysfunction. Currently, on modified diet. 8. Functional quadriplegia, present on admission. 9. Abnormal LFTs, probably due to sepsis, improved. 10. Physical deconditioning and contractures. 11. History of hypertension. PLAN: Plan was discussed with the patient. Job ID: [id number]
== END 2018-08-12 17:14 | disposition swing bed (61) | DRG 871 ==
LOC: ERS 01:52 → ERHOLD 02:01 → T4-B 12:51
PROVIDERS: ADMIT Internal Medicine; ATTEND Internal Medicine
DX: A41.9 Sepsis, unspecified organism (principal); L89.154 Pressure ulcer of sacral region, stage 4; L89.893 Pressure ulcer of other site, stage 3; L89.213 Pressure ulcer of right hip, stage 3; L89.313 Pressure ulcer of right buttock, stage 3; J69.0 Pneumonitis due to inhalation of food and vomit; E43 Unspecified severe protein-calorie malnutrition; R53.2 Functional quadriplegia; M86.8X8 Other osteomyelitis, other site; Z68.1 Body mass index [BMI] 19.9 or less, adult; Z66 Do not resuscitate; M21.951 Unspecified acquired deformity of right thigh; M24.561 Contracture, right knee; F03.90 Unspecified dementia, unspecified severity, without behavioral disturbance, psychotic disturbance, mood disturbance, and anxiety; Z74.01 Bed confinement status; I10 Essential (primary) hypertension; Z79.01 Long term (current) use of anticoagulants; Z51.5 Encounter for palliative care; E87.6 Hypokalemia; E83.42 Hypomagnesemia; E83.39 Other disorders of phosphorus metabolism; F01.50 Vascular dementia, unspecified severity, without behavioral disturbance, psychotic disturbance, mood disturbance, and anxiety
CPT/HCPCS: 36415; 51701; 80053; 80069; 80202; 81003; 81015; 83735; 84100; 85025; 85730; 93005; 93010; 94640; J0456; J0696; J1644; J3370; J3475; J7050; J7620